=== PATIENT | female | born 1975 ===

== ENCOUNTER 2021-06-29 21:55 | Emergency (ER) | payer SELFPAY ==
[2021-06-30 02:00] VITALS: BP 119/78
[2021-06-30] MEDS ORDERED: predniSONE 50 MG TAB PO STA (02:46)
[2021-06-30] MEDS ORDERED: FAMOTIDINE 20 MG TAB PO STA (02:46)
[2021-06-30] MEDS ORDERED: diphenhydrAMINE 50 MG/ML VIAL IM ONE (02:46)
--- NOTE | 2021-06-30 02:58 | Emergency Department Report ---
ED Allergic Reaction HPI - General Chief complaint: Allergic Reaction Stated complaint: BODY RASH Time Seen by Provider: 06/30/21 02:35 Source: patient Mode of arrival: Ambulatory Limitations: No Limitations - History of Present Illness MD Complaint: allergic reaction, hives -: Gradual, hour(s) (3), week(s) Exposure: unknown Symptoms: itching Severity: mild, moderate Treatment Prior to Arrival: none Previous Allergy History: none - Related Data Previous Rx's Medication Instructions Recorded Last Taken Type Desloratadine [Clarinex] 5 mg PO DAILY #20 tablet 06/30/21 Unknown Rx EPINEPHrine [Epipen] 0.3 mg IJ ONCE PRN #1 auto.injct 06/30/21 Unknown Rx hydrOXYzine HCL [Atarax] 25 mg PO Q6HR PRN #20 tablet 06/30/21 Unknown Rx predniSONE [Deltasone] 50 mg PO QDAY #5 tab 06/30/21 Unknown Rx Allergies Allergy/AdvReac Type Severity Reaction Status Date / Time No Known Allergies Allergy Verified 06/30/21 01:59 ED Review of Systems ROS: Stated complaint: BODY RASH Other details as noted in HPI Comment: All other systems reviewed and negative ED Past Medical Hx - Past Medical History Previous Medical History?: No - Surgical History Past Surgical History?: Yes Additional Surgical History: c scetion - Social History Smoking Status: Never Smoker Substance Use Type: None - Medications Home Medications: Home Medications Medication Instructions Recorded Confirmed Last Taken Type Desloratadine [Clarinex] 5 mg PO DAILY #20 tablet 06/30/21 Unknown Rx EPINEPHrine [Epipen] 0.3 mg IJ ONCE PRN #1 auto.injct 06/30/21 Unknown Rx hydrOXYzine HCL [Atarax] 25 mg PO Q6HR PRN #20 tablet 06/30/21 Unknown Rx predniSONE [Deltasone] 50 mg PO QDAY #5 tab 06/30/21 Unknown Rx ED Physical Exam - General Limitations: No Limitations General appearance: alert, in no apparent distress - Head Head exam: Present: atraumatic, normocephalic - Eye Eye exam: Present: normal appearance, PERRL Pupils: Present: normal accommodation - ENT ENT exam: Present: normal exam, normal orophraynx, mucous membranes moist, TM's normal bilaterally - Neck Neck exam: Present: normal inspection, full ROM - Respiratory Respiratory exam: Present: normal lung sounds bilaterally. Absent: respiratory distress, wheezes, rales, chest wall tenderness, accessory muscle use - Cardiovascular Cardiovascular Exam: Present: regular rate, normal rhythm. Absent: systolic murmur, diastolic murmur, rubs, gallop - GI/Abdominal GI/Abdominal exam: Present: soft, normal bowel sounds. Absent: distended, tenderness, hyperactive bowel sounds, hypoactive bowel sounds, organomegaly - Extremities Exam Extremities exam: Present: normal inspection - Back Exam Back exam: Present: normal inspection. Absent: CVA tenderness (R), CVA tenderness (L) - Neurological Exam Neurological exam: Present: alert, oriented X3, CN II-XII intact, normal gait - Psychiatric Psychiatric exam: Present: normal affect, normal mood - Skin Skin exam: Present: warm, dry, intact, normal color, urticaria. Absent: rash ED Course Vital Signs 06/30/21 01:56 Temperature 97.6 F Pulse Rate 70 Respiratory 18 Rate Blood Pressure 119/78 [Left] O2 Sat by Pulse 98 Oximetry ED Medical Decision Making - Medical Decision Making This patient presents with symptoms consistent with acute hypersensitivity reaction, likely acute allergic reaction. Presentation not consistent with acute anaphylaxis (lack of pulmonary, dermatologic, cardiovascular or GI symptoms, lack of hypotension or exposure to known allergen), angioedema, serum sickness(no recent drug exposure, lack of fevers, arthralgias), ingestion of preformed toxin. No evidence of airway compromise or shock at this time. Plan to treat for allergic reaction with H2/H1 blockers, steroids. No indication for epinephrine at this time. Plan Critical care attestation.: If time is entered above; I have spent that time in minutes in the direct care of this critically ill patient, excluding procedure time. ED Disposition Clinical Impression: Allergic reaction, Hives Disposition: HOME / SELF CARE / HOMELESS Is pt being admited?: No Does the pt Need Aspirin: No Condition: Stable Instructions: Hives, Allergies, Adult, [id number], How to Use an Auto- Injector Pen Referrals: [facility] [Provider Group] - 3-5 Days
== END 2021-06-30 04:00 | disposition home or self-care (01) ==
LOC: ED 21:55
DX: T78.40XA Allergy, unspecified, initial encounter (principal); L50.9 Urticaria, unspecified; Z98.890 Other specified postprocedural states; Z79.899 Other long term (current) drug therapy; X58.XXXA Exposure to other specified factors, initial encounter
CPT/HCPCS: 96372; 99282; J1200; J7512